=== PATIENT | female | born 1955 ===

== ENCOUNTER 2018-11-11 16:48 | Emergency (ER) | payer OTHER, BC ==
[~2018-11-11] VITALS: Ht 160 cm; Wt 65.8 kg
--- OUTSIDE RECORDS SUMMARY | 2018-11-11 16:50 | XMS ---
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 E.DCristel VISIT COUNT (12 MO.) [address] 1 [facility] TOTAL 4 NOTE: Visits indicate total known visits. ED/UCC VISIT TRACKING (12 MO.) 11/11/2018 16:49 [facility] [place] TYPE: Emergency COMPLAINT: - CAN'T SLEEP 08/11/2018 10:35 [facility] [place] TYPE: Emergency DIAGNOSES: - LEFT LEG SWELLING AND PAIN - Pain in left ankle and joints of left foot - Other acute osteomyelitis, left ankle and foot 05/21/2018 16:52 [facility] TYPE: Emergency DIAGNOSES: - Sepsis, unspecified organism - Type 2 diabetes mellitus with diabetic polyneuropathy - Type 2 diabetes mellitus with diabetic peripheral angiopathy with gangrene - Cellulitis of right lower limb - Dependence on renal dialysis - long term care pharmacist (current) use of insulin - Cellulitis of left lower limb - Leg Pain - Referral - End stage renal disease 05/16/2018 17:02 [facility] TYPE: Emergency COMPLAINT: - KNEE PAIN INPATIENT VISIT TRACKING (12 MO.) 08/11/2018 17:59 [facility] TYPE: Medical Surgical COMPLAINT: - ANKLE PAIN DIAGNOSES: 0. Pain in left ankle and joints of left foot 1. Arthritis due to other bacteria, left ankle and foot 2. End stage renal disease 3. Hypertensive heart and chronic kidney disease with heart failure and with stage 5 chronic kidney disease, or end stage renal disease 4. Cellulitis of left lower limb 5. Chronic diastolic (congestive) heart failure 6. Type 2 diabetes mellitus with diabetic chronic kidney disease 7. Peripheral vascular disease, unspecified 8. Type 2 diabetes mellitus with diabetic neuropathic arthropathy 9. Other malaise 10. Other disorders of phosphorus metabolism 11. Other disorders of plasma-protein metabolism, not elsewhere classified 12. Anemia in chronic kidney disease 13. Methicillin susceptible Staphylococcus aureus infection as the cause of diseases classified elsewhere 14. long term care pharmacist (current) use of oral hypoglycemic drugs 15. Patient's noncompliance with renal dialysis 16. Dependence on renal dialysis 17. halfway (current) use of aspirin 05/21/2018 16:52 [facility] TYPE: General Medicine DIAGNOSES: - Sepsis, unspecified organism - Anemia in chronic kidney disease - Essential (primary) hypertension - Cutaneous abscess of limb, unspecified - Cellulitis of right lower limb - End stage renal disease - Other disorders of plasma-protein metabolism, not elsewhere classified - long term care pharmacist (current) use of insulin - Bacteremia - Type 2 diabetes mellitus with diabetic polyneuropathy - Type 2 diabetes mellitus with diabetic peripheral angiopathy with gangrene - Cellulitis of unspecified part of limb - Dependence on renal dialysis - Cellulitis of left lower limb [email or web address]
[2018-11-11] MEDS ORDERED: TEMAZEPAM15 MG PO (17:05)
[2018-11-11] MEDS ORDERED: METOPROLOL SUCC25 MG PO (17:06)
[2018-11-11] MEDS ORDERED: RENVELA800 MG PO (17:06)
[2018-11-11] MEDS ORDERED: AMLODIPINE BESYL5 MG PO (17:06)
[2018-11-11] MEDS ORDERED: LATANOPROST2.5 ML OPTH (17:06)
[2018-11-11] MEDS ORDERED: PRINIVIL10 MG PO (17:08)
== END 2018-11-11 17:15 | disposition home or self-care (01) ==
LOC: ED 16:48
DX: G47.9 Sleep disorder, unspecified (principal)